=== PATIENT | male | born 1955 ===

== ENCOUNTER → 2020-09-28 | Outpatient (CLI) | payer OTHER ==
[~2020-09-28] VITALS: Ht 182.9 cm; Wt 90.7 kg
[~2020-09-28] MED LIST: BENADRYL25 MG PO; DESYREL150 MG PO; DICLOFENAC SODI75 MG PO; FISH OIL 1,0001 EAC9 PO; JARDIANCE25 MG PO; LIPITOR 20 MG T20 M1 PO; LISINOPRIL5 MG PO; MORPHINE SULFAT15 MG PO; NEURONTIN300 MG PO; OXYCODONE HCL10 MG PO; SUPER B-50 COM1 EACH PO; ZANAFLEX4 M1 PO
--- NOTE | ~2020-09-28 | HPC ---
[facility] [place] [address] PAIN MANAGEMENT CONSULTATION Name: JULIANA DAMON Room #: REG HOLLIS Ravinder.#: [id number] Admission: 09/28/20 Attend Phys: Adin Carrillo DO Discharge: Date of : 59 Report #: [id number] THIS REPORT FOR: cc: Yuriy Pickens,Yuriy Cho,Adin Merlos DO ~ DOC #: [id number] cc: Yuriy Carrillo DO DATE OF SERVICE: 09/28/2020 REFERRING PHYSICIAN: Dr. Yuriy Pickens. CHIEF COMPLAINT: Low back pain, bilateral lower extremity pain and paresthesias. HISTORY OF PRESENT ILLNESS: As you know, the patient is a 65-year-old male who has been followed in our pain clinic at [facility] in [place], undergoing epidural injections under fluoroscopic guidance. He has a longstanding history of lumbar radiculopathy secondary to multifactorial central canal stenosis. He has done very well with previous epidural injections, but unfortunately his symptoms have reoccurred. He was unable to make an appointment at [facility] office until late October and subsequently changed his care over to our [facility] office. He returns to our clinic here today reporting a pain score of 7/10. The patient denies injury or trauma that may have led to symptom reoccurrence. He is indicating pain that begins in low back, radiates down the bilateral legs. He places pain score 7/10 exacerbated with any type of movement or activity, improves with epidural injections. He returns today to our clinic at [facility] to undergo next in the series of epidural injections. He denies any changes in medical history since our last visit. He reports no injury or trauma. ALLERGIES: No known drug allergies. CURRENT MEDICATIONS: MiraLax, tizanidine, trazodone, vitamin B complex, gabapentin, lisinopril and metformin. SOCIAL HISTORY: The patient is a current smoker. Despite our discussions to discontinue that activity as it has direct effect on his chronic pain, he denies IV or illicit drug use, admits to 3 alcoholic beverages per day. 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 He is not receiving workmen's compensation nor is trying to obtain disability benefits. Not in litigation in regards to pain. Unaccompanied at today's visit. [address] [address] PAIN MANAGEMENT CONSULTATION Name: JULIANA DAMON Room #: REG CLI Yogi#: [id number] Admission: 09/28/20 Attend Phys: Adin Carrillo DO Discharge: Date of : 59 Report #: [id number] REVIEW OF SYSTEMS: Positive for fatigue and weakness, wearing corrective eyewear, hearing loss with tinnitus, nocturia, change of force or stream in urination, non-insulin dependent diabetes, chronic low back pain, bilateral lower extremity pain. All other review of systems negative per 12-point review of systems other than those listed in history of present illness. Pain impact score 43/70, moderate to severe interference of daily activities secondary to pain. PQRS: The patient has known arthritic changes of the bilateral knees, bilateral hands, bilateral hips and lumbar spine. No rheumatoid arthritis. Placing current pain score 7/10, not a fall risk, has not had a fall in last 3 months. He is not on blood thinners, but is treated for hypertension. He is on chronic opioids, receiving his medications through his primary care physician. He is reported to have a low opioid addiction potential. Again, pain impact is 43/70. PHYSICAL EXAMINATION: VITAL SIGNS: Blood pressure 124/81, pulse 72, respiratory rate 16 and unlabored. The patient is 96% on room air, height 6 feet tall, weight 200 pounds, BMI calculated 27.1. GENERAL: Well-developed, well-nourished, well-hydrated 65-year-old male. He appears his stated age, pain is rated today 7/10. HEENT: Normocephalic, atraumatic. Pupils equal, round and responsive. The patient is wearing a mask in compliance with COVID-19 regulations. EXTREMITIES: Show no clubbing, no cyanosis and no edema. MUSCULOSKELETAL: Lower extremity strength equal and symmetrical 5/5 intact to light touch from L1 through S2 dermatomes. Seated straight leg raising negative. Supine straight leg raising is negative. Muscle bulk and tone equal and symmetrical in lower extremities. Deep tendon reflexes equal and symmetrical 2+/4. ASSESSMENT: 1. Lumbar radiculopathy. 2. Spinal stenosis of lumbar spine. 3. Neural foraminal stenosis of lumbar spine. 4. Displacement of lumbar intervertebral disk with lumbar radiculopathy. 5. Lumbar degeneration. 6. Lumbosacral spondylosis with radiculopathy. 7. Facet arthropathy, lumbar spine. 8. Chronic intractable pain. PLAN: 1. The patient has changed his care from [facility] office to our [facility] office and has requested a lumbar epidural injection under fluoroscopic guidance to be provided today. The patient is placing pain score at 7/10. He reports previous lumbar epidural injection provided at our clinic at [facility], gave nearly 80% [facility] [address] [place] [address] PAIN MANAGEMENT CONSULTATION Name: JULIANA DAMON [id number] Admission: 09/28/20 Attend Phys: Adin Carrillo DO Discharge: Date of : 59 Report #: [id number] improvement in overall pain until just recently where his pain has reoccurred. He suffered no new injury or trauma. He returns today in followup visit for the next in the series of lumbar epidural injections in hopes of staying ahead of this from a pain standpoint. The patient has been advised risks and benefits of the procedure, states understood and wished to proceed. 2. No medication changes made at today's visit. The patient will continue current medical therapy as prior prescribed. 3. We will see the patient back in followup visit on an as needed basis for the next in the series of epidural injections. We will see the patient here at our [facility] office. Now that he has changed his care to our clinic. PROCEDURE NOTE DESCRIPTION OF PROCEDURE: L5-S1 parasagittal epidural steroid injection under fluoroscopic guidance. After obtaining written consent, the patient was taken back to fluoroscopy suite, placed in prone position with pillow under abdomen to decrease lumbar lordosis. Skin overlying lumbosacral area prepped and draped in aseptic fashion. The L5-S1 vertebral interspace identified by AP fluoroscopy. Skin and subcutaneous tissue overlying target site injection anesthetized with 3 mL 1% lidocaine. A 20 gauge 3-1/2 inch Tuohy needle advanced under fluoroscopic guidance towards the epidural space using a parasagittal approach. Epidural space identified using loss of resistance to air technique. After negative aspiration for heme or cerebrospinal fluid, 1 mL of Omnipaque injected. Lumbar epidurogram confirmed using both AP and lateral fluoroscopy. After negative aspiration for heme or cerebrospinal fluid, 5 mL solution containing 2 mL, 40 mg per mL 80 mg total triamcinolone along with 3 mL of lidocaine, 1% injected slowly. Needle retracted longterm flushed with 1 mL of 1% lidocaine and then removed. Sterile bandage placed over injection site. No new motor deficits present in the lower extremities following procedure. The patient tolerated the procedure well, carefully escorted to recovery room in stable condition. No apparent complications. After meeting discharge criteria, the patient discharged home. DO [place] [id number] PAIN MANAGEMENT CONSULTATION Name: JULIANA DAMON Room #: REG CL Yogi#: [id number] Admission: 09/28/20 Attend Phys: Adin Carrillo DO Discharge: Date of : 59 Report #: [id number] By: [id number] Adin Carrillo DO /nt
[2020-09-28 12:54] VITALS: BP 124/81
--- NOTE | 2020-09-28 13:05 | NUR ---
Pain Clinic Assessment: 1. History of Osteoarthritis: KNEES HANDS HIPS BACK History of Rheumatoid Arthritis: Not Applicable 2. Height: 6 ft. 0 in. 182.9 cm. Weight: 200.0 lb. oz. 90.720 kg. Patient's BMI: 27.1 3. Vital Signs: BP: 124/81 Pulse: 72 Resp: 16 Temp: 02 Sat: 96 ECG Mon: 4. Pain Intensity: 7 5. Fall Risk: Dizziness: N Needs help standing or walking: N Fallen in the last 3 months: N Fall risk comments: 6. Patient on Blood Thinner: None 7. History of Hypertension: Y 8. Opioid Therapy greater than 6 weeks: Y Opiate Contract Signed: 9. Risk Assessment Tool Provided: LOW-1 10. Functional Assessment Tool: 43 11. Recreational Drug Use: Never Drug Type: Tobacco Use: Current Every Day Smoker Tobacco Type: Cigarettes Amount or Packs/day: 1 PACK How Many Years: 30 Alcohol Use: Yes Frequency: Daily Quant: 3
== END | disposition home or self-care (01) ==
LOC: PAIN 07:36
PROVIDERS: ATTEND Anesthesiology Pain Medicine
DX: M51.16 Intervertebral disc disorders with radiculopathy, lumbar region (principal); M48.061 Spinal stenosis, lumbar region without neurogenic claudication; M47.27 Other spondylosis with radiculopathy, lumbosacral region; M47.26 Other spondylosis with radiculopathy, lumbar region; G89.29 Other chronic pain; I10 Essential (primary) hypertension; M19.90 Unspecified osteoarthritis, unspecified site; F17.210 Nicotine dependence, cigarettes, uncomplicated; Z98.890 Other specified postprocedural states; Z79.899 Other long term (current) drug therapy

== ENCOUNTER → 2020-11-30 | Outpatient (CLI) | payer OTHER ==
[~2020-11-30] VITALS: Ht 182.9 cm; Wt 88.9 kg
[~2020-11-30] MED LIST changes: +DULOXETINE HCL30 MG PO
--- NOTE | ~2020-11-30 | HPC ---
[facility] [place] [address] PAIN MANAGEMENT CONSULTATION Name: JULIANA DAMON Room #: REG HOLLIS Yogi#: [id number] Admission: 11/30/20 Attend Phys: Adin Carrillo DO Discharge: Date of : 59 Report #: [id number] THIS REPORT FOR: cc: Yuriy Pickens,Yuriy Cho,Adin Merlos DO ~ cc: Yuriy Pickens DATE OF SERVICE: 11/30/2020 CHIEF COMPLAINT: Low back pain, bilateral lower extremity pain with paresthesias. HISTORY OF PRESENT ILLNESS: As you know, the patient is a 65-year-old male with longstanding history of lumbar radicular symptoms, sent to our clinic by his primary care physician to trial epidural injections under fluoroscopic guidance. The patient reports the epidural injection given 09/28/2020 gave improvement in symptoms of greater than 90%, lasting for nearly 7 weeks. Unfortunately, his symptoms have reoccurred. There has been no inciting injury or trauma. He returns today in followup visit reporting pain score 7/10 involving his typical lumbar radicular pain. He returns today in followup visit to undergo next in the series of lumbar epidural injections in hopes of further analgesic benefit. The patient denies any injury or trauma that may led to symptom development. He also denies any changes in medication management that would preclude him from undergoing an epidural injection today. He does report that he has an MRI planned for tomorrow per the request of Dr. Yuriy Pickens. This is to evaluate the lumbar spine. ALLERGIES: No known drug allergies. CURRENT MEDICATIONS: [place] 3 fish oil, vitamin B complex, atorvastatin, lisinopril, MS Contin, oxycodone, diclofenac, tizanidine, gabapentin, trazodone, Jardiance, diphenhydramine, and duloxetine. SOCIAL HISTORY: The patient is a current smoker. He denies IV or illicit drug use. Admits to 3 alcoholic beverages per day. 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 He is unaccompanied at today's visit. IMAGING: No new imaging available. PQRS: Shows arthritic changes of bilateral knees, bilateral hands, hips and lumbar spine. No rheumatoid arthritis. He is placing pain intensity today at 7/10. He is not a fall risk, has not had a fall in last 3 months. He is not on blood thinners, but history of hypertension. He is on chronic opioids, has a low opioid addiction potential based on our assessment tool. Pain impact is 43/70. Severe interference of daily activities secondary to pain. [address] [address] PAIN MANAGEMENT CONSULTATION Name: JULIANA DAMON Room #: REG HOLLIS Carter.#: [id number] Admission: 11/30/20 Attend Phys: Adin Carrillo DO Discharge: Date of : 59 Report #: [id number] PHYSICAL EXAMINATION: VITAL SIGNS: Blood pressure 125/81, pulse 65, respiratory rate 16 and unlabored. The patient is 96% on room air, height 6 feet tall, weight 196 pounds, BMI calculated 26.6. GENERAL: A well-developed, well-nourished, well-hydrated 65-year-old male appearing stated age, pain is rated today at 7/10. HEENT: Normocephalic, atraumatic. Pupils are round and responsive. He is in a mask in compliance with COVID-19 regulations. EXTREMITIES: Show no clubbing, no cyanosis, no edema. MUSCULOSKELETAL: Lower extremity strength is symmetrical again today, 5/5. Seated straight leg raising negative. Supine straight leg raising negative. Deep tendon reflexes are symmetrical 2+/4 at patella and Achilles. Ankle clonus negative. Babinski is negative. ASSESSMENT: 1. Chronic lumbar radiculopathy. 2. Spinal stenosis of lumbar spine. 3. Neural foraminal stenosis of lumbar spine. 4. Displacement of lumbar intervertebral disk with radiculopathy. 5. Lumbosacral spondylosis with radiculopathy. 6. Lumbar degeneration. 7. Facet arthropathy, lumbar spine. 8. Chronic intractable pain. PLAN: 1. The patient returns today in followup visit having noted excellent benefit with the epidural injection provided at our last visit up to reportedly 90% improvement lasting for almost seven weeks. Unfortunately, his symptoms have reoccurred. He returns today to undergo next in the series of epidural injections. The patient has been advised the risks and benefits of the procedure, states understood and wished to proceed. 2. No medication changes made at today's visit. The patient will continue current medical therapy as prior prescribed. 3. We plan to see the patient back in followup visit on an as needed basis for the next in the series of lumbar epidural injections. We are hopeful once again, the patient will see good and prolonged benefit with that procedure provided today. PROCEDURE NOTE DESCRIPTION OF PROCEDURE: L5-S1 right parasagittal epidural steroid injection under fluoroscopic guidance. After obtaining written consent, the patient was taken back to fluoroscopy suite, placed in prone position with pillow under abdomen to decrease lumbar lordosis. Skin overlying lumbosacral area then prepped and draped in aseptic [address] [address] PAIN MANAGEMENT CONSULTATION Name: JULIANA DAMON Room #: REG HOLLIS Calix#: [id number] Admission: 11/30/20 Attend Phys: Adin Carrillo DO Discharge: Date of : 59 Report #: [id number] fashion. The L5-S1 vertebral interspace identified by AP fluoroscopy. Skin and subcutaneous tissue overlying target site injection anesthetized with 3 mL 1% lidocaine. A 20 gauge 3-1/2 inch Tuohy needle advanced under fluoroscopic guidance towards the epidural space using a right parasagittal approach. Epidural space identified using loss of resistance to air technique. After negative aspiration for heme or cerebrospinal fluid, 1 mL of Omnipaque injected. Lumbar epidurogram confirmed using both AP and lateral fluoroscopy. After negative aspiration for heme or cerebrospinal fluid, 5 mL solution containing 2 mL 40 mg per mL 80 mg total triamcinolone along with 3 mL of lidocaine, 1% injected slowly. Needle retracted mcfp flushed with 1 mL of 1% lidocaine, then removed. Sterile bandage placed over injection site. No new motor deficits present in lower extremity following procedure. The patient tolerated the procedure well, carefully escorted to recovery room in stable condition. No apparent complications. After meeting our discharge criteria, the patient discharged home. By: [id number] Adin Carrillo DO /nt
[2020-11-30 10:30] VITALS: BP 125/81
--- NOTE | 2020-11-30 10:33 | NUR ---
Pain Clinic Assessment: 1. History of Osteoarthritis: KNEES HANDS HIPS BACK History of Rheumatoid Arthritis: Not Applicable 2. Height: 6 ft. 0 in. 182.9 cm. Weight: 196.0 lb. oz. 88.905 kg. Patient's BMI: 26.6 3. Vital Signs: BP: 125/81 Pulse: 65 Resp: 16 Temp: 02 Sat: 96 ECG Mon: 4. Pain Intensity: 7 5. Fall Risk: Dizziness: N Needs help standing or walking: N Fallen in the last 3 months: N Fall risk comments: 6. Patient on Blood Thinner: None 7. History of Hypertension: Y 8. Opioid Therapy greater than 6 weeks: Y Opiate Contract Signed: 9. Risk Assessment Tool Provided: LOW-1 10. Functional Assessment Tool: 43 11. Recreational Drug Use: Never Drug Type: Tobacco Use: Current Every Day Smoker Tobacco Type: Cigarettes Amount or Packs/day: 1 PACK How Many Years: 30 Alcohol Use: Yes Frequency: Daily Quant: 3
== END | disposition home or self-care (01) ==
LOC: PAIN 08:28
PROVIDERS: ATTEND Anesthesiology Pain Medicine
DX: M51.16 Intervertebral disc disorders with radiculopathy, lumbar region (principal); M48.02 Spinal stenosis, cervical region; M47.27 Other spondylosis with radiculopathy, lumbosacral region; M47.26 Other spondylosis with radiculopathy, lumbar region; G89.29 Other chronic pain; I10 Essential (primary) hypertension; M19.90 Unspecified osteoarthritis, unspecified site; F17.210 Nicotine dependence, cigarettes, uncomplicated; Z98.890 Other specified postprocedural states; Z79.899 Other long term (current) drug therapy

== ENCOUNTER → 2021-02-02 | Outpatient (CLI) | payer OTHER ==
[~2021-02-02] VITALS: Ht 182.9 cm; Wt 92.6 kg
[2021-02-02 09:31] VITALS: BP 115/78
--- NOTE | 2021-02-02 09:42 | NUR ---
Pain Clinic Assessment: 1. History of Osteoarthritis: KNEES HANDS HIPS BACK History of Rheumatoid Arthritis: Not Applicable 2. Height: 6 ft. 0 in. 182.9 cm. Weight: 204.2 lb. oz. 92.625 kg. Patient's BMI: 27.7 3. Vital Signs: BP: 115/78 Pulse: 83 Resp: 16 Temp: 02 Sat: 98 ECG Mon: 4. Pain Intensity: 6 5. Fall Risk: Dizziness: N Needs help standing or walking: N Fallen in the last 3 months: N Fall risk comments: 6. Patient on Blood Thinner: None 7. History of Hypertension: Y 8. Opioid Therapy greater than 6 weeks: Y Opiate Contract Signed: 9. Risk Assessment Tool Provided: LOW-1 10. Functional Assessment Tool: 43 11. Recreational Drug Use: Never Drug Type: Tobacco Use: Current Every Day Smoker Tobacco Type: Cigarettes Amount or Packs/day: 1 pack How Many Years: Alcohol Use: Yes Frequency: Daily Quant: 1-3
--- NOTE | 2021-02-08 08:07 | HPC ---
[facility] [place] [address] PAIN MANAGEMENT CONSULTATION Name: JULIANA DAMON Room #: REG HOLLIS Yogi#: [id number] Admission: 02/02/21 Attend Phys: Adin Carrillo DO Discharge: Date of : 59 Report #: [id number] THIS REPORT FOR: cc: Yuriy Pickens,Yuriy Cho,Adin Merlos DO ~ cc: Yuriy Pickens DATE OF SERVICE: 02/02/2021 CHIEF COMPLAINT: Low back pain, right lower extremity pain with paresthesias. HISTORY OF PRESENT ILLNESS: As you know, the patient is a very pleasant 65-year-old male with longstanding history of lumbar radicular symptoms referred to our clinic to trial epidural injections under fluoroscopic guidance. He has undergone epidural injection under fluoroscopic guidance 09/28/2020 and again on 11/30/2020. Both injections provided up to 80% improvement in overall pain, but unfortunately his symptoms have reoccurred. He returns today in followup visit requesting the third in the series of lumbar epidural injections. The patient recently underwent MRI of the lumbar spine, which according to the patient showed changes significant enough, he is being referred on to neurosurgery for consultation and evaluation. He returns today requesting a lumbar epidural injection under fluoroscopic guidance. The patient reports no injury or trauma that may have led to symptom reoccurrence. He has had no changes in his medication management that would preclude him from having an epidural injection provided today. ALLERGIES: No known drug allergies. CURRENT MEDICATIONS: See chart. SOCIAL HISTORY: The patient is a current smoker. Denies IV or illicit drug use. Admits to 3 alcohol beverages per day. 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 IMAGING: MRI of the lumbar spine dated 12/31/2020 shows severe central canal stenosis at L4-L5. Moderate to severe central canal stenosis at L2-L3, which has progressed from prior CT examination 05/29/2019. There are multilevel degenerative changes throughout the lumbar spine rated anywhere from moderate to severe in its presentation. PHYSICAL EXAMINATION: GENERAL: Well-developed, well-nourished, well-hydrated 65-year-old male appearing stated age, pain is rated up to 7/10. HEENT: Normocephalic, atraumatic. Pupils equal, round and responsive. He is wearing a mask in compliance with [place] [address] regulations and [facility] regulations. EXTREMITIES: Show no clubbing, no cyanosis, [place] [address] PAIN MANAGEMENT CONSULTATION Name: JULIANA DAMON Room #: REG [facility] Baldemar.Ana Cristina.#: [id number] Admission: 02/02/21 Attend Phys: Adin Carrillo DO Discharge: Date of : 59 Report #: [id number] MUSCULOSKELETAL: Lower extremity strength remains symmetrical again today 5/5. Muscle bulk and tone is symmetrical in comparing left lower extremity to right. Seated straight leg raising negative. Supine straight leg raising is now mildly positive on the right at about 70 degree angle. Ankle clonus negative. Babinski is negative. Gait is mildly antalgic favoring right lower extremity over left. ASSESSMENT: 1. Chronic lumbar radiculopathy. 2. Spinal stenosis of lumbar spine. 3. Neural foraminal stenosis of lumbar spine. 4. Displacement of lumbar intervertebral disk with radiculopathy. 5. Lumbosacral spondylosis with radiculopathy. 6. Lumbar degeneration. 7. Facet arthropathy of lumbar spine. 8. Chronic intractable pain. PLAN: 1. The patient returns today in followup visit requesting to undergo third in the series of lumbar epidural injections under fluoroscopic guidance. The patient has reported good efficacy with the previous 2 injections easily over 80% improvement in overall pain with each of the injections, but unfortunately his symptoms have reoccurred. He has undergone recent MRI and has been referred to neurosurgery for consultation. He has yet to make that appointment. He has been referred back to our clinic to trial the third in the series of epidural injections in hopes of improving pain. He has been advised of the risks and benefits, states understood and wished to proceed. 2. No medication changes made at today's visit. The patient will continue current medical therapy as prior prescribed. 3. We will plan to see the patient back in followup visit on an as needed basis for the next in the series of epidural injections. We are hopeful the patient will see good and prolonged benefit with the epidural injection provided today. We will see him back at the earliest of 03/31/2021 for the first in the next series of lumbar epidural injections if necessary. We are hopeful the patient will see good and prolonged benefit with the injection provided today. PROCEDURE NOTE DESCRIPTION OF PROCEDURE: L5-S1 right paramedian epidural steroid injection under fluoroscopic guidance. After obtaining written consent, the patient was taken back to fluoroscopy suite, placed in prone position with pillow under abdomen to decrease lumbar lordosis. Skin overlying lumbosacral area prepped and draped in aseptic fashion. The L5-S1 vertebral interspace identified by AP fluoroscopy. Skin and subcutaneous tissue overlying target site injection anesthetized with 3 mL 1% [address] [address] PAIN MANAGEMENT CONSULTATION Name: JULIANA DAMON Room #: REG HOLLIS Calix#: [id number] Admission: 02/02/21 Attend Phys: Adin Carrillo DO Discharge: Date of : 59 Report #: [id number] lidocaine. A 20 gauge 3-1/2 inch Tuohy needle advanced under fluoroscopic guidance towards the epidural space using a right paramedian approach. Epidural space was identified using loss of resistance to air technique. After negative aspiration for heme or cerebrospinal fluid, 1 mL of Omnipaque injected. Lumbar epidurogram was confirmed using both AP and lateral fluoroscopy. After negative aspiration for heme or cerebrospinal fluid, 5 mL solution containing 2 mL 40 mg per mL 80 mg total triamcinolone along with 3 mL of lidocaine 1% injected slowly. [place] were then retracted correction flushed with 1 mL of 1% lidocaine and then removed. Sterile bandage placed over injection site. No new motor deficits present in lower extremity following procedure. The patient tolerated the procedure well, carefully escorted to recovery room in stable condition. No apparent complications. After meeting discharge criteria, the patient discharged home. <ELECTRONICALLY SIGNED> By: Adin Carrillo DO 02/08/21 [id number] dAin Carrillo DO /nt
== END | disposition home or self-care (01) ==
LOC: PAIN 07:02
PROVIDERS: ATTEND Anesthesiology Pain Medicine
DX: M51.16 Intervertebral disc disorders with radiculopathy, lumbar region (principal); M47.27 Other spondylosis with radiculopathy, lumbosacral region; M47.26 Other spondylosis with radiculopathy, lumbar region; M48.061 Spinal stenosis, lumbar region without neurogenic claudication; G89.29 Other chronic pain; F17.210 Nicotine dependence, cigarettes, uncomplicated; Z98.890 Other specified postprocedural states; Z79.899 Other long term (current) drug therapy

== ENCOUNTER → 2021-04-06 | Outpatient (CLI) | payer OTHER ==
[~2021-04-06] VITALS: Ht 182.9 cm; Wt 93.3 kg
[2021-04-06 09:46] VITALS: BP 115/80
--- NOTE | 2021-04-06 09:49 | NUR ---
Pain Clinic Assessment: 1. History of Osteoarthritis: KNEES HANDS HIPS BACK History of Rheumatoid Arthritis: Not Applicable 2. Height: 6 ft. 0 in. 182.9 cm. Weight: 205.8 lb. oz. 93.350 kg. Patient's BMI: 27.9 3. Vital Signs: BP: 115/80 Pulse: 83 Resp: 16 Temp: 02 Sat: 97 ECG Mon: 4. Pain Intensity: 4 5. Fall Risk: Dizziness: N Needs help standing or walking: N Fallen in the last 3 months: N Fall risk comments: 6. Patient on Blood Thinner: None 7. History of Hypertension: Y 8. Opioid Therapy greater than 6 weeks: Y Opiate Contract Signed: 9. Risk Assessment Tool Provided: LOW-1 10. Functional Assessment Tool: 43 11. Recreational Drug Use: Never Drug Type: Tobacco Use: Current Every Day Smoker Tobacco Type: Cigarettes Amount or Packs/day: 1 PACK How Many Years: Alcohol Use: Yes Frequency: Daily Quant: 2
--- NOTE | 2021-04-12 08:44 | HPC ---
[facility] [place] [address] PAIN MANAGEMENT CONSULTATION Name: JULIANA DAMON Room #: REG HOLLIS Yogi#: [id number] Admission: 04/06/21 Attend Phys: Adin Carrillo DO Discharge: Date of : 59 Report #: [id number] THIS REPORT FOR: cc: Yuriy Pickens,Yuriy Cho,Adin Merlos DO ~ cc: Yuriy Pickens DATE OF SERVICE: 04/06/2021 CHIEF COMPLAINT: Low back pain, right lower extremity pain with paresthesias. HISTORY OF PRESENT ILLNESS: As you know, the patient is a very pleasant 65-year-old male with longstanding history of lumbar radiculopathy involving low back and right lower extremity. The patient has undergone epidural injections under fluoroscopic guidance with excellent benefit. The most recent epidural injection gave greater than 50% improvement in overall pain lasting until just recently where his symptoms have reoccurred. He returns today in followup visit requesting a lumbar epidural injection under fluoroscopic guidance. The patient has begun considering surgical options and wants to discuss the possibility of a referral to Neurosurgery. The patient is also complaining of some increasing left shoulder pain for which he has undergone injections in the past with good benefit, but has not had one of those injections in almost 2 years. He returns today in followup visit to undergo a lumbar epidural injection and to discuss possible referral for surgical options. ALLERGIES: No known drug allergies. CURRENT MEDICATIONS: See chart. SOCIAL HISTORY: The patient is a current smoker. He denies IV or illicit drug use. He admits to 3 alcohol beverages per day. 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 He is unaccompanied today. IMAGING: No new imaging available. PHYSICAL EXAMINATION: VITAL SIGNS: Blood pressure 115/80, pulse 83, respiratory rate 16 and unlabored. The patient is 97% on room air. Height 6 feet tall, weight is 215.8 pounds, BMI calculated 27.9. GENERAL: Well-developed, well-nourished, well-hydrated 65-year-old male appearing stated age, smells mildly of tobacco smoke, placing current pain score at 4/10. HEENT: Normocephalic, atraumatic. Pupils are round and responsive. He is wearing a mask in compliance with COVID-19 regulations. EXTREMITIES: Show no clubbing, no cyanosis. No appreciable edema. MUSCULOSKELETAL: Lower extremity strength equal and symmetrical again today [address] [address] PAIN MANAGEMENT CONSULTATION Name: JULIANA DAMON Room #: REG CLI [facility]#: [id number] Admission: 04/06/21 Attend Phys: Adin Carrillo DO Discharge: Date of : 59 Report #: [id number] 5/5. Seated straight leg raising negative. Supine straight leg raising mildly positive on the right. Rock's test is negative. Gait is mildly antalgic favoring right lower extremity over left. Pain is elicited with active and passive range of motion of the left shoulder. There is no hector crepitus. Range of motion is limited by pain. ASSESSMENT: 1. Chronic lumbar radiculopathy. 2. Spinal stenosis of lumbar spine. 3. Neural foraminal stenosis of lumbar spine. 4. Displacement of lumbar intervertebral disk with radiculopathy. 5. Lumbosacral spondylosis with radiculopathy. 6. Lumbar degeneration. 7. Facet arthropathy of lumbar spine. 8. Chronic left shoulder pain. 9. Osteoarthritis of the left shoulder. 10. Chronic intractable pain. PLAN: 1. The patient returns today in followup visit requesting to undergo lumbar epidural injection under fluoroscopic guidance. He reports approximately 50% or greater improvement in overall pain with the epidural injection provided at last visit. He returns today requesting next in the series of epidural injections. He has been advised risks and benefits of this procedure, states understood and wished to proceed. 2. The patient is requesting a referral to Neurosurgery to discuss his surgical options. I provided the patient with a referral he has requested. We recommend he follow up with [facility], specifically to see Dr. Davis Mcknight to discuss surgical options. A prescription was provided to the patient today with referral to Dr. Mcknight's office. He will contact their clinic as quickly as possible and be seen in consultation. 3. The patient has requested possible intra-articular shoulder injection. We will make the patient an appointment in approximately 7 to 10 days to undergo the intra-articular shoulder injection requested. He has done well with these injections in the past and is hopeful that he will see improvement with the injection in the future. We will make him that appointment for return visit to undergo left intra-articular shoulder injection under fluoroscopic guidance. PROCEDURE NOTE DESCRIPTION OF PROCEDURE: L5-S1 right paramedian epidural steroid injection under fluoroscopic guidance. After obtaining written consent, the patient was taken back to fluoroscopy suite, placed in prone position, pillow under abdomen to decrease lumbar lordosis. Skin overlying lumbosacral area then prepped and draped in aseptic fashion. The L5-S1 vertebral interspace identified by AP fluoroscopy. [address] [address] PAIN MANAGEMENT CONSULTATION Name: JULIANA DAMON Room #: REG CLJuan David Calix#: [id number] Admission: 04/06/21 Attend Phys: Adin Carrillo DO Discharge: Date of : 59 Report #: [id number] subcutaneous tissue overlying target site injection anesthetized with 3 mL of 1% lidocaine. A 20 gauge 3-1/2 inch Tuohy needle was advanced under fluoroscopic guidance towards the epidural space using a right paramedian approach. Epidural space was identified using loss of resistance to air technique. After negative aspiration for heme or cerebrospinal fluid, 1 mL of Omnipaque was injected. Lumbar epidurogram was confirmed using both AP and lateral fluoroscopy. After negative aspiration for heme or cerebrospinal fluid, 5 mL solution containing 2 mL, 40 mg per mL, 80 mg total triamcinolone along with 3 mL of lidocaine 1% injected slowly. Needle was retracted detention, flushed with 1 mL of 1% lidocaine, then removed. Sterile bandage placed over injection site. No new motor deficits present in lower extremity following procedure. The patient tolerated the procedure well, carefully escorted to recovery room in stable condition. No apparent complications. After meeting discharge criteria, the patient discharged home. <ELECTRONICALLY SIGNED> By: Adin Carrillo DO 04/12/21 0844 [id number] [id number] Adin Carrillo DO /nt
== END | disposition home or self-care (01) ==
LOC: PAIN 09:34
PROVIDERS: ATTEND Anesthesiology Pain Medicine
DX: M51.16 Intervertebral disc disorders with radiculopathy, lumbar region (principal); M47.27 Other spondylosis with radiculopathy, lumbosacral region; M47.26 Other spondylosis with radiculopathy, lumbar region; M48.061 Spinal stenosis, lumbar region without neurogenic claudication; G89.29 Other chronic pain; M25.512 Pain in left shoulder; M19.012 Primary osteoarthritis, left shoulder; F17.210 Nicotine dependence, cigarettes, uncomplicated; M19.90 Unspecified osteoarthritis, unspecified site; Z98.890 Other specified postprocedural states; Z79.899 Other long term (current) drug therapy

== ENCOUNTER → 2021-04-20 | Outpatient (CLI) | payer OTHER ==
[~2021-04-20] VITALS: Ht 182.9 cm; Wt 94.4 kg
[2021-04-20 08:55] VITALS: BP 111/71
--- NOTE | 2021-04-20 09:03 | NUR ---
Pain Clinic Assessment: 1. History of Osteoarthritis: KNEES HANDS HIPS BACK History of Rheumatoid Arthritis: Not Applicable 2. Height: 6 ft. 0 in. 182.9 cm. Weight: 208.2 lb. oz. 94.439 kg. Patient's BMI: 28.2 3. Vital Signs: BP: 111/71 Pulse: 79 Resp: 16 Temp: 02 Sat: 97 ECG Mon: 4. Pain Intensity: 5 5. Fall Risk: Dizziness: N Needs help standing or walking: N Fallen in the last 3 months: N Fall risk comments: 6. Patient on Blood Thinner: None 7. History of Hypertension: Y 8. Opioid Therapy greater than 6 weeks: Y Opiate Contract Signed: 9. Risk Assessment Tool Provided: LOW-1 10. Functional Assessment Tool: 43 11. Recreational Drug Use: Never Drug Type: Tobacco Use: Current Every Day Smoker Tobacco Type: Cigarettes Amount or Packs/day: 1 pack How Many Years: Alcohol Use: Yes Frequency: Weekly Quant: 3-4
--- NOTE | 2021-04-22 07:27 | HPC ---
[facility] [place] [address] PAIN MANAGEMENT CONSULTATION Name: JULIANA DAMON Room #: REG HOLLIS Yogi#: [id number] Admission: 04/20/21 Attend Phys: Adin Carrillo DO Discharge: Date of : 59 Report #: [id number] THIS REPORT FOR: cc: Yuriy Pickens,Yuriy Cho,Adin Merlos DO ~ cc: Yuriy Pickens DATE OF SERVICE: 04/20/2021 REFERRING PHYSICIAN: Dr. Yuriy Pickens. CHIEF COMPLAINT: Left shoulder pain. HISTORY OF PRESENT ILLNESS: As you know, the patient is a very pleasant 66-year-old male referred to our clinic for longstanding lumbar radiculopathy involving low back and right lower extremity. He has undergone epidural injections under fluoroscopic guidance with good benefit. He was complaining at the last visit of ongoing left shoulder pain. He has undergone left shoulder injections in the past, which provided good benefit. He had requested that we provide a left shoulder injection to address his ongoing symptoms. He has had multiple traumas to the left shoulder, but no specific trauma that led to the symptoms he is currently experiencing. He returns today in followup visit requesting a left intra-articular shoulder injection under fluoroscopic guidance. ALLERGIES: No known drug allergies. CURRENT MEDICATIONS: See chart. SOCIAL HISTORY: The patient is a current smoker. Denies IV or illicit drug use. Admits to 3 alcohol beverages per day. 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 He is unaccompanied today. IMAGING: No new imaging available. PHYSICAL EXAMINATION: VITAL SIGNS: Blood pressure 111/71, pulse 79, respiratory rate 16 and unlabored. The patient is 97% on room air. GENERAL: Well-developed, well-nourished, well-hydrated 66-year-old male appearing stated age, pain is rated today at around 5/10. HEENT: Normocephalic, atraumatic. Pupils equal, round and responsive to light. Extraocular muscles are intact. Speech fluent. He is wearing a mask in compliance with COVID-19 regulations. EXTREMITIES: Show no clubbing, no cyanosis and no appreciable edema. MUSCULOSKELETAL: Active and passive range of motion of the left shoulder increases pain. There are no muscle bulk changes when comparing left upper [facility] [address] [place] [address] PAIN MANAGEMENT CONSULTATION Name: JULIANA DAMON Room #: REG [facility]#: [id number] Admission: 04/20/21 Attend Phys: Adin Carrillo DO Discharge: Date of : 59 Report #: [id number] extremity to right. Pain is elicited with palpation over the shoulder itself. ASSESSMENT: 1. Left shoulder pain. 2. Left shoulder osteoarthritis. 3. Chronic intractable pain. PLAN: 1. The patient has returned today in followup visit to undergo a left intra-articular shoulder injection under fluoroscopic guidance. We made today's appointment to address his ongoing left shoulder issue with the injection. The patient recently had a lumbar epidural injection for which he is reporting excellent benefit. He returns for the intraarticular shoulder injection in hopes of improving his shoulder pain. The patient has been advised risks and benefits of those procedure, states understood and wished to proceed. 2. No medication changes made at today's visit. The patient will continue current medical therapy as prior prescribed. 3. We will plan to see the patient back in followup visit on an as needed basis for the next in the series of left intra-articular shoulder injections. DESCRIPTION OF PROCEDURE: Left intraarticular shoulder injection under fluoroscopic guidance. After obtaining written consent, the patient was taken back to fluoroscopy suite, placed in a supine position. The image intensifier was then brought into position over the left shoulder and AP imaging was obtained. The area was marked and then sterilely prepped with chlorhexidine. A 27-gauge 1-1/4-inch needle was then used to anesthetize skin and subcutaneous tissue with 2 mL of 1% lidocaine preservative-free. A 25-gauge 2-inch needle was advanced under fluoroscopic guidance towards the proximal head of the humerus. Needle was advanced until reaching the proximal head of the humerus then retracted 1 mm. After negative aspiration for heme, 0.5 mL of Omnipaque injected. An excellent left shoulder arthrogram was obtained. After negative aspiration for heme, 3 mL of a solution containing 1 mL 40 mg per mL, 40 mg total triamcinolone and 2 mL of bupivacaine 0.5% was injected slowly. Needle was retracted mcc flushed with 1 mL of 1% lidocaine, then removed. Sterile bandage placed over injection site. There were no new motor deficits present in the upper extremity following procedure. The patient tolerated the procedure well. Carefully escorted to recovery room [address] [address] PAIN MANAGEMENT CONSULTATION Name: JULIANA DAMON Room #: REG HOLLIS Calix#: [id number] Admission: 04/20/21 Attend Phys: Adin Carrillo DO Discharge: Date of : 59 Report #: [id number] in stable condition. No apparent complications. After meeting discharge criteria, the patient discharged home. <ELECTRONICALLY SIGNED> By: Adin Carrillo DO 04/22/21 0727 0956 17 Adin Carrillo DO /nt
== END | disposition home or self-care (01) ==
LOC: PAIN 06:56
PROVIDERS: ATTEND Anesthesiology Pain Medicine
DX: M25.512 Pain in left shoulder (principal); M19.012 Primary osteoarthritis, left shoulder; G89.29 Other chronic pain; M19.90 Unspecified osteoarthritis, unspecified site; F17.210 Nicotine dependence, cigarettes, uncomplicated; Z98.890 Other specified postprocedural states; Z79.899 Other long term (current) drug therapy; Z88.8 Allergy status to other drugs, medicaments and biological substances

== ENCOUNTER → 2021-06-07 | Outpatient (CLI) | payer OTHER ==
[~2021-06-07] VITALS: Ht 182.9 cm; Wt 96.6 kg
[2021-06-07 08:53] VITALS: BP 130/82
--- NOTE | 2021-06-07 08:59 | NUR ---
Pain Clinic Assessment: 1. History of Osteoarthritis: KNEES HANDS HIPS BACK History of Rheumatoid Arthritis: Not Applicable 2. Height: 6 ft. 0 in. 182.9 cm. Weight: 213.0 lb. oz. 96.616 kg. Patient's BMI: 28.9 3. Vital Signs: BP: 130/82 Pulse: 83 Resp: 20 Temp: 02 Sat: 95 ECG Mon: 4. Pain Intensity: 5 5. Fall Risk: Dizziness: N Needs help standing or walking: N Fallen in the last 3 months: N Fall risk comments: 6. Patient on Blood Thinner: None 7. History of Hypertension: Y 8. Opioid Therapy greater than 6 weeks: Y Opiate Contract Signed: 9. Risk Assessment Tool Provided: LOW-1 10. Functional Assessment Tool: 43 11. Recreational Drug Use: Never Drug Type: Tobacco Use: Current Every Day Smoker Tobacco Type: Amount or Packs/day: How Many Years: Alcohol Use: Yes Frequency: Quant:
--- NOTE | 2021-06-08 08:15 | HPC ---
[facility] [place] [address] PAIN MANAGEMENT CONSULTATION Name: JULIANA DAMON Room #: REG HOLLIS Yogi#: [id number] Admission: 06/07/21 Attend Phys: Adin Carrillo DO Discharge: Date of : 59 Report #: [id number] THIS REPORT FOR: cc: Yuriy Pickens,Yuriy Cho,Adin Merlos DO ~ cc: Yuriy Pickens DATE OF SERVICE: 06/07/2021 REFERRING PHYSICIAN: Dr. Yuriy Pickens. CHIEF COMPLAINT: Low back pain, right lower extremity pain with paresthesias. HISTORY OF PRESENT ILLNESS: As you know, the patient is a very pleasant 66-year-old male returning in followup visit for recurrence of lumbar radiculopathy involving low back and right lower extremity. The patient has undergone previous lumbar epidural injections with good benefit, most recent giving improvement in symptoms of greater than 60%, which was just recently noted to be reoccurring. There has been no inciting injury or trauma. The patient is followed up with Neurosurgery in regards to his ongoing back issues. He has been sent for new imaging, but has not been advised of the potential treatment options. He is to follow up with them next week. He returns today for a lumbar epidural injection under fluoroscopic guidance. He is placing his current pain score around 5/10. ALLERGIES: No known drug allergies. CURRENT MEDICATIONS: See chart. SOCIAL HISTORY: The patient is a current smoker. He denies IV or illicit drug use. Admits to 3 alcohol beverages per day. 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 He is unaccompanied at today's visit. IMAGING: No new imaging is available. PQRS: The patient has known arthritic changes of the bilateral shoulders, lumbar spine, bilateral hips, bilateral hands and knees. No rheumatoid arthritis. He is placing current pain score 5/10. He is not a fall risk, has not had a fall in last 3 months. He is not on blood thinners, but is treated for hypertension. He is on chronic opioids, has a low opioid addiction potential based on assessment tool despite the fact that he continues to smoke consistently. He is placing current pain impact at 43 of 70, moderate to severe interference of daily activities secondary to pain. PHYSICAL EXAMINATION: VITAL SIGNS: Blood pressure 130/82, pulse 83, respiratory rate 20, unlabored. [address] [address] PAIN MANAGEMENT CONSULTATION Name: JULIANA DAMON Room #: REG [facility] M.Ana Cristina.#: [id number] Admission: 06/07/21 Attend Phys: Adin Carrillo DO Discharge: Date of : 59 Report #: [id number] The patient is 95% on room air, height 6 feet tall, weight 213 pounds, BMI calculated 28.9. GENERAL: Well-developed, well-nourished, well-hydrated 66-year-old female appearing stated age, pain is rated today 5/10. HEENT: Normocephalic, atraumatic. Pupils equal, round and responsive. He is wearing a mask in compliance with COVID-19 regulations. EXTREMITIES: Show no clubbing, no cyanosis, no appreciable edema. MUSCULOSKELETAL: Lower extremity strength equal and symmetrical 5/5. Muscle bulk and tone is equal and symmetrical. Seated straight leg raising negative. Supine straight leg raising mildly positive on the right, about 60-degree angle. Rock's test is negative. Gait mildly antalgic favoring right lower extremity. Ankle clonus and Babinski is negative. ASSESSMENT: 1. Chronic lumbar radiculopathy. 2. Spinal stenosis of lumbar spine. 3. Neural foraminal stenosis of lumbar spine. 4. Displacement of lumbar intervertebral disk with radiculopathy. 5. Lumbosacral spondylosis with radiculopathy. 6. Lumbar degeneration. 7. Facet arthropathy of lumbar spine. 8. Chronic intractable pain. PLAN: 1. The patient returns today in followup visit requesting to undergo lumbar epidural injection under fluoroscopic guidance. He reports good improvement in symptoms with the epidural injection provided a previous visit, but unfortunately symptoms have reoccurred. He is now placing his pain score at around 5/10. This involves the low back and right lower extremity. The patient and I discussed the risks and the benefits of a lumbar epidural injection. He states he understood and wished to proceed. 2. The patient is to follow up with his neurosurgery team next week. He has undergone new imaging, and they are to review this imaging and determine what surgical options he has in regards to his chronic lumbar radiculopathy. He is to follow up with Dr. Mcknight's office at his earliest convenience. 3. We will see the patient back in followup visit on an as needed basis for the next in the series of lumbar epidural injections. With the new guidelines for Medicare, he has completed his 2 epidural injections in the 6 months. We will discuss other options of treatment if necessary in a followup visit. PROCEDURE NOTE. DESCRIPTION OF PROCEDURE: L5-S1 right parasagittal epidural steroid injection under fluoroscopic guidance. After obtaining written consent, the patient was taken back to fluoroscopy [address] [address] PAIN MANAGEMENT CONSULTATION Name: JULIANA DAMON Room #: REG CLJuan David [facility]ix#: [id number] Admission: 06/07/21 Attend Phys: Adin Carrillo DO Discharge: Date of : 59 Report #: [id number] suite, placed in prone position, pillow under abdomen to decrease lumbar lordosis. Skin overlying lumbosacral area prepped and draped in aseptic fashion. The L5-S1 vertebral interspace identified by AP fluoroscopy. Skin and subcutaneous tissue overlying target site injection anesthetized with 3 mL 1% lidocaine. A 20 gauge 3-1/2 inch Tuohy needle advanced under fluoroscopic guidance towards the epidural space using a right parasagittal approach. Epidural space identified using loss of resistance to air technique. After negative aspiration for heme or cerebrospinal fluid, 1 mL of Omnipaque injected. Lumbar epidurogram was confirmed using both AP and lateral fluoroscopy. After negative aspiration for heme or cerebrospinal fluid, 5 mL solution containing 2 mL 40 mg per mL 80 mg total triamcinolone along with 3 mL of lidocaine, 1% injected slowly. Needle retracted senior care, flushed with 1 mL of 1% lidocaine and removed. Sterile bandage placed over injection site. No new motor deficits present in lower extremity following procedure. The patient tolerated the procedure well, carefully escorted to recovery room in stable condition. No apparent complications. After meeting discharge criteria, the patient discharged home. <ELECTRONICALLY SIGNED> By: Adin Carrillo DO 06/08/21 0815 0917 10 Adin Carrillo, /nt
== END | disposition home or self-care (01) ==
LOC: PAIN 08:05
PROVIDERS: ATTEND Anesthesiology Pain Medicine
DX: M51.16 Intervertebral disc disorders with radiculopathy, lumbar region (principal); M47.27 Other spondylosis with radiculopathy, lumbosacral region; M47.26 Other spondylosis with radiculopathy, lumbar region; G89.29 Other chronic pain; I10 Essential (primary) hypertension; M19.90 Unspecified osteoarthritis, unspecified site; F17.210 Nicotine dependence, cigarettes, uncomplicated; Z98.890 Other specified postprocedural states; Z79.899 Other long term (current) drug therapy